=== PATIENT | female | born 1985 | race Caucasian/White ===

== ENCOUNTER 2022-07-07 17:40 | Outpatient (CLI) | payer OTHER ==
[2022-07-07 22:27] LABS: BACTERIAL VAGINOSIS DNA NEGATIVE (NEGATIVE); CANDIDA GLABRATA DNA NEGATIVE (NEGATIVE); CANDIDA GROUP DNA NEGATIVE (NEGATIVE); CANDIDA KRUSEI DNA NEGATIVE (NEGATIVE); TRICHOMONAS VAGINALIS DNA NEGATIVE (NEGATIVE)
== END 2022-07-07 23:59 | disposition home or self-care (01) ==
LOC: LAB.N 17:40
PROVIDERS: ATTEND Physician Assistant
DX: R30.0 Dysuria (principal)
CPT/HCPCS: 81514

== ENCOUNTER 2023-03-30 16:53 | Emergency (ER) | payer OTHER ==
[2023-03-30 17:27] VITALS: BP 123/81; O2SAT 100
--- NOTE | 2023-03-30 19:21 | XRAY Report ---
PROCEDURE: Ankle 3 View RT INDICATIONS: Trauma TECHNIQUE: 3 views of the ankle were acquired. COMPARISON: None. FINDINGS: Bones: No fractures or dislocations. Ankle mortise is normally aligned. No suspicious bony lesions . Soft tissues: No tibiotalar joint effusion. Achilles tendon appears normal. Mild anterior soft tis sly swelling. IMPRESSION: No acute bony abnormality. If clinical symptoms persist, consider a follow-up exam in 7-10 days. Reviewed by: Cari Lama MD on 03/30/2023 7:20 PM [facility] Approved by: Cari Lama MD on 03/30/2023 7:20 PM [facility] Station ID: [id number]
--- NOTE | 2023-03-30 20:06 | ED Physician Documentation ---
History of Present Illness - Stated complaint Stated Complaint: RT ANKLE PX - Chief complaint Chief Complaint: Ext Problem - Additonal information Additional information: 37-year-old female presents emergency department for evaluation of acute right ankle pain that began suddenly this afternoon when she was simply walking around her art cart in the classroom and felt a sharp pop in the top of the foot near the ankle joint. She states that she often has popping in her ankle joints but it is really painful. She has had difficulty bearing weight since. Review of Systems Constitutional: denies: Fever Musculoskeletal: reports: Joint pain PD PAST MEDICAL HISTORY - Past Medical History Past Medical History: Yes - Allergies Allergies/Adverse Reactions: Allergies Allergy/AdvReac Type Severity Reaction Status Date / Time morphine Allergy Anxiety Verified 03/30/23 17:01 nitrofurantoin Allergy Anxiety Verified 03/30/23 17:01 [From Macrobid] - Social History Does the pt smoke?: No Smoking Status: Never smoker Does the pt drink ETOH?: No Does the pt have substance abuse?: No - Immunizations Immunizations are current?: Yes - POLST Patient has POLST: No PD ED PE NORMAL - Extremities Extremities: Other (Pain on the dorsum of the right foot at the ankle joint with mild amount of swelling though no erythema. Normal flexion extension, inversion eversion and range of motion. However patient has pain with weightbearing) Results - Vitals Vitals: Vital Signs - 24 hr 03/30/23 03/30/23 17:01 19:56 Temperature 36.5 C Heart Rate 85 Respiratory 18 18 Rate Blood Pressure 123/81 H O2 Saturation 100 Oxygen O2 Source Room air - Rads (name of study) right ankle Relevant Findings:: Final report received (No acute fracture or osseous lesion or dislocation.) PD Medical Decision Making - ED course Complexity details: d/w patient ED course: 37-year-old female here for evaluation of acute pain on the dorsum of her right foot that occurred suddenly when she felt a pop in her ankle. She does have a moderate amount of swelling but no ecchymosis or erythema. X-rays without findings suggest acute fracture. Exam is not consistent with an infected joint. No falls or trauma. I suspect that this is a sprainPatient was placed in an Charlie wrap. Given crutches. Recommended Tylenol and Motrin. Otherwise usual emergent return precautions were discussed for worsening symptoms. I did recommend follow-up with Ortho or podiatry for longer-term evaluation Departure - Departure Disposition: 01 Home, Self Care Clinical Impression: Right ankle sprain Qualifiers: Encounter type: initial encounter Involved ligament of ankle: unspecified ligament Qualified Code(s): S93.401A - Sprain of unspecified ligament of right ankle, initial encounter Condition: Stable Comments: You felt a pop in the top of your right foot and now have some swelling there. The x-ray does not show any obvious fracture. It is likely that you have stretched or torn the tendons and ligaments in the foot. I would recommend wearing the Charlie wrap when out of bed for the next several days. Use the crutches to help with ambulation. I do recommend taking Tylenol and Motrin. I also recommend that you discuss with your primary care provider as you may benefit from referral to orthopedics or podiatry/physician credentialing specialist. Return to the ER if you having any new or worsening symptoms.
[2023-03-30] MEDS: KETOROLAC 30 MG/ML VIAL IM STA (20:10)
== END 2023-03-30 20:28 | disposition home or self-care (01) ==
LOC: ED 16:53
DX: S93.401A Sprain of unspecified ligament of right ankle, initial encounter (principal); X58.XXXA Exposure to other specified factors, initial encounter; Y93.01 Activity, walking, marching and hiking; Y92.219 Unspecified school as the place of occurrence of the external cause; Y99.0 Civilian activity done for income or pay
CPT/HCPCS: 96374; 99282

== ENCOUNTER 2023-05-28 01:08 | Outpatient (CLI) | payer OTHER | END 2023-05-28 01:09 | disposition short-term general hospital (02) | LOC: EMS 01:08 | DX: R10.32 Left lower quadrant pain (principal) | CPT/HCPCS: A0425; A0427 ==

== ENCOUNTER 2023-07-24 18:37 | Outpatient (CLI) | payer OTHER | END 2023-07-24 23:59 | disposition short-term general hospital (02) | LOC: EMS 18:37 | PROVIDERS: ATTEND Emergency Medicine | DX: H92.01 Otalgia, right ear (principal) | CPT/HCPCS: A0425; A0429 ==